=== PATIENT | male | born 1980 | race Caucasian/White ===

== ENCOUNTER 2018-03-21 03:17 | Emergency (ER) | payer BC ==
[~2018-03-21] VITALS: Ht 182.9 cm; Wt 96.3 kg
[2018-03-21 03:23] VITALS: Ht 182.9 cm; Wt 96.3 kg
[2018-03-21 04:38] VITALS: BP 116/63
== END 2018-03-21 04:38 | disposition home or self-care (01) ==
LOC: ED 03:17
DX: M54.5 Low back pain (principal); R10.9 Unspecified abdominal pain; R11.0 Nausea
CPT/HCPCS: J1885